=== PATIENT | female | born 1995 | race Caucasian/White ===

== ENCOUNTER → 2019-08-16 11:24 | Outpatient (CLI) | payer OTHER, MEDICAID, SELFPAY ==
[2019-08-16 12:05] LABS: Appearance Urine UA CLEAR; Bilirubin Urine UA NEGATIVE (NEGATIVE); Color Urine UA YELLOW; Glucose Urine UA NEGATIVE (Negative); Ketones Urine UA NEGATIVE (NEGATIVE); Leukocyte Esterase Urine UA NEGATIVE (NEGATIVE); Nitrite Urine UA NEGATIVE (Negative); Occult Blood Urine UA NEGATIVE (Negative); Protein Urine UA NEGATIVE (Negative); Specific Gravity Urine UA 1.015 (1.000-1.035); Urobilinogen Urine UA 0.2 E.U./dL (0.2)
[2019-08-16 12:06] LABS: pH Urine UA 6.5 (4.5-8.0)
[2019-08-16 12:21] LABS: Add Manual Diff / Slide Review NO; Basophils Absolute Auto 0 /uL (0-100); Basophils Percent Auto 0.3 % (0-2); Eosinophils Absolute Auto 0 /uL (0-450); Eosinophils Percent Auto 0.4 % (2-4); Hematocrit 38.6 % (36-46); Hemoglobin 13.3 g/dL (12.0-16.0); Lymphocytes Absolute Auto 1700 /uL (1100-4500); Lymphocytes Percent Auto 17.2 % (25-40); Mean Corpuscular HGB Conc 34.5 % (30-36); Mean Corpuscular Hemoglobin 30.2 PG (26-34); Mean Corpuscular Volume 87.3 fL (80-100); Monocytes Absolute Auto 400 /uL (0-900); Monocytes Percent Auto 4.1 % (3-14); Neutrophils Absolute Auto 7700 /uL (1500-7000); Platelet Count 273 X10^3/uL (150-400); Red Blood Cell Count 4.42 X10^6/uL (4.0-5.2); Red Cell Distribution Width 13.4 % (11.6-14.8); White Blood Cell Count 9.8 X10^3/uL (4.5-11.0)
[2019-08-16 15:14] LABS: Hepatitis B Surface Antigen NEGATIVE s/c (NEGATIVE)
[2019-08-16 15:31] LABS: HIV 1 & 2 Ab/Ag 4th Gen Combo NEGATIVE (NEGATIVE); Hep C Virus Ab w/Reflex Quant NEGATIVE s/c (NEGATIVE)
[2019-08-18 20:26] LABS: RPR Screen Nonreactive (Nonreactive)
== END ==
PROVIDERS: PCP Specialist; Visit Provider Specialist
DX: Z34.81 Encounter for supervision of other normal pregnancy, first trimester (principal)
CPT/HCPCS: 36415; 80055; 81003; 86787; 86803; 86850; 86900; 86901; 87086; 87389

== ENCOUNTER → 2019-10-08 11:06 | Outpatient (CLI) | payer OTHER, MEDICAID, SELFPAY ==
[2019-10-12 19:57] LABS: AFP, Serum 34.9 ng/mL; Brief History NTD NG; Calc Gestational Age 16.7; Cigarette Smoker N; Donated Egg N; Donor Egg Age N; Inhibin A, Dimeric 98 pg/mL; Inhibin A, MoM 0.59; Maternal Weight 151 lbs; Number of Fetuses 1; Previous Pregnancy Down Syndro N; hCG, MoM 0.32; hCG, Serum 9.4 IU/mL
== END ==
PROVIDERS: PCP Specialist; Visit Provider Specialist
DX: Z34.82 Encounter for supervision of other normal pregnancy, second trimester (principal)
CPT/HCPCS: 36415; 82105; 82677; 84702; 86336

== ENCOUNTER → 2019-11-17 13:40 | Outpatient (CLI) | payer OTHER, MEDICAID, SELFPAY ==
--- NOTE | 2019-11-17 13:41 | DI.US.S_ITS ---
PROCEDURE: OB >= 14 WEEKS FETUS INDICATIONS: 20 WEEK ANATOMY SCAN OUTSIDE/PRIOR DATING DATA: First dating scan (date and location): 08/13/19. Estimated date of delivery (MICHELE) from first dating scan: 03/19/20. TECHNIQUE: Real-time scanning was performed of the fetus, with image documentation and biometric measurements. Endovaginal scanning: No COMPARISON: [facility], OB <= 14 WEEKS FETUS, 08/13/2019, 14:38. [facility], OB >= 14 WEEKS FETUS, 10/08/2019, 11:02. FINDINGS: General: A single living intrauterine gestation is present. Presentation: Vertex. Placenta: Placental position is posterior, without previa. Amniotic fluid index: 14 cm, normal range is 5-24 cm. heart rate: 133 beats per minute. Maternal cervical canal: 4.5 cm long. Normal lower limit is 2.5 cm. biometrics: Biparietal diameter: 23 weeks 1 day Head circumference: 22 weeks 6 days Abdominal circumference: 23 weeks 2 days Femur length: 23 weeks 3 days Estimated gestational age from initial scan: 22 weeks 3 days Composite gestational age from present scan: 23 weeks 1 days Estimated weight and percentile: 583 g; 85th percentile Measurement variability for biometric dating: +/- 7 days from 14 weeks to 15 weeks 6 days gestation, +/- 10 days from 16 weeks to 21 weeks 6 days gestation, +/- 2 weeks from 22 weeks to 27 weeks 6 days gestation, +/- 3 weeks for 28 weeks gestation or later. weight reference: 4500 g or EFW >90/95% is considered macrosomia or large for gestational age. EFW <10% is small for gestational age. EFW 5% or less is considered intra-uterine growth restriction. Anatomic survey: Neuro: Ventricles are non-dilated at less than 10 mm. Cisterna magna is normal at 3-11 mm. Cerebellum is normal in size and morphology. Nuchal skin fold: Normal at less than 6 mm between 14-21 weeks gestational age. Face: Nose and lips, facial profile are normal. Spine: No evidence for spina bifida. Heart: 4-chambered heart is present, with normal ventricular outflow tracts. Diaphragm: Diaphragm is intact. Stomach: Left-sided stomach is present. Kidneys: No hydronephrosis. Normal is less than 5 mm in 2nd trimester, less than 7 mm in 3rd trimester. Cord: 3-vessel cord has orthotopic insertion. Bladder: Normal in size. Extremities: All 4 extremities identified. IMPRESSION: 1. Single living IUP redemonstrated and interval growth is normal. 2. Normal anatomic survey. Dictated by: Tarik HYATT Interpreted: Toñito Herron MD on 11/17/2019 at 16:40 Approved by: Toñito Herron M.D. on 11/17/2019 at 17:00
== END ==
PROVIDERS: PCP Specialist; Referring Provider Specialist; Visit Provider Specialist
DX: Z34.82 Encounter for supervision of other normal pregnancy, second trimester (principal); Z3A.23 23 weeks gestation of pregnancy
CPT/HCPCS: 76811

== ENCOUNTER → 2019-12-10 09:10 | Outpatient (CLI) | payer OTHER, MEDICAID, SELFPAY ==
[2019-12-10 12:41] LABS: Hematocrit 34.8 % (36-46); Hemoglobin 11.2 g/dL (12.0-16.0)
[2019-12-10 13:00] LABS: GTT (PREG) 1 Hour PP 50gm Dose 97 mg/dL (76-139)
== END ==
PROVIDERS: PCP Specialist; Referring Provider Specialist; Visit Provider Specialist
DX: Z34.82 Encounter for supervision of other normal pregnancy, second trimester (principal)
CPT/HCPCS: 36415; 82950; 85014; 85018

== ENCOUNTER 2020-02-04 09:23 | Outpatient (CLI) | payer OTHER, MEDICAID, SELFPAY ==
--- NOTE | 2020-02-04 10:27 | P.TNLD_ITS ---
Visit Information Visit Information Date of evaluation: 02/04/20 Primary OB Provider: Kiara Emery Reason for Evaluation: Yes non-stress test non-stress test reason: other (Deceleration heard on [place] in office) Vital Signs Vital Signs: Blood pressure 111/58, pulse 91, temperature 36.5? 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) current occupational exposures/hazards: No special danielle needs: No leisure activities: other (runs around with her son and at work!) Smoking Status: Former smoker Evaluation Evaluation Baseline heart rate: 120 Variability: Moderate (11-25) monitor accelerations: Present monitor decelerations: Absent Contraction Frequency (minutes): 0 Diagnosis, Plan/Disposition Final Diagnosis (1) Hypertension affecting in third trimester: Current Visit: No Status: Acute (2) 30 weeks gestation of : Current Visit: Yes Status: Acute Plan/Disposition Plan: NST reactive with prolonged accelerations rather than decelerations Blood pressure much improved OB Disposition: home
== END 2020-02-04 10:34 | disposition home or self-care (01) ==
LOC: LABOR 09:32 → OB 02-08 12:35
PROVIDERS: PCP Specialist; Referring Provider Specialist; Visit Provider Specialist
DX: O13.3 Gestational [pregnancy-induced] hypertension without significant proteinuria, third trimester (principal); Z3A.30 30 weeks gestation of pregnancy
CPT/HCPCS: 59025; G0378; G0379

== ENCOUNTER → 2020-02-23 12:12 | Outpatient (CLI) | payer OTHER, MEDICAID, SELFPAY ==
[2020-02-24 17:48] LABS: Strep Grp B PCR NEG for Grp B Strep
== END ==
PROVIDERS: PCP Specialist; Visit Provider Specialist
DX: Z34.83 Encounter for supervision of other normal pregnancy, third trimester (principal)
CPT/HCPCS: 87653

== ENCOUNTER 2020-03-24 08:56 | Outpatient (CLI) | payer OTHER, MEDICAID, SELFPAY ==
--- NOTE | 2020-03-24 09:50 | P.TNLD_ITS ---
Visit Information Visit Information Date of evaluation: 03/24/20 Primary OB Provider: Kiara Emery Reason for Evaluation: Yes non-stress test non-stress test reason: other (Postdates) Vital Signs Vital Signs: Blood pressure 127/73 pulse of 93 [facility] Medical History (Updated 03/24/20 @ 15:26 by Kiara Emery MD) Chlamydia (Acute) Peptic ulcer (Acute) Pneumonia (Acute) Post depression (Acute) Vaginal delivery (Inactive ~11/2016) Surgical History (Updated 08/10/19 @ 10:13 by Chana Haider RN) History of dilatation and curettage (Acute) Social History marital status: unmarried,living together number of children: 1 household members: significant other and children pets and animals: Yes (X 2 cats and aware) education level: high school (11 years) 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 Patient has an appointment in 3 days. Routine precautions reviewed with the patient. She is scheduled for induction in 1 week OB Disposition: home
== END 2020-03-24 09:51 | disposition home or self-care (01) ==
LOC: LABOR 09:21 → OB 11:35
PROVIDERS: PCP Specialist; Referring Provider Specialist; Visit Provider Specialist
DX: O48.0 Post-term pregnancy (principal); Z3A.40 40 weeks gestation of pregnancy
CPT/HCPCS: 59025; G0378; G0379

== ENCOUNTER 2020-03-27 10:31 | Outpatient (CLI) | payer OTHER, MEDICAID, SELFPAY | END 2020-03-27 11:29 | disposition home or self-care (01) | LOC: LABOR 10:49 → OB 03-28 10:01 | PROVIDERS: PCP Specialist; Referring Provider Specialist; Visit Provider Specialist | DX: O48.0 Post-term pregnancy (principal); Z3A.41 41 weeks gestation of pregnancy | CPT/HCPCS: 59025; G0378; G0379 ==

== ENCOUNTER 2020-03-27 20:18 | Inpatient (IN) | payer OTHER, MEDICAID, SELFPAY ==
[2020-03-27 21:25] LABS: Add Manual Diff / Slide Review NO; Basophils Absolute Auto 100 /uL (0-100); Basophils Percent Auto 0.6 % (0-2); Eosinophils Absolute Auto 100 /uL (0-450); Eosinophils Percent Auto 0.6 % (2-4); Hematocrit 32.3 % (36-46); Hemoglobin 10.7 g/dL (12.0-16.0); Lymphocytes Absolute Auto 2200 /uL (1100-4500); Lymphocytes Percent Auto 18.2 % (25-40); Mean Corpuscular HGB Conc 33.2 % (30-36); Mean Corpuscular Hemoglobin 27.8 PG (26-34); Mean Corpuscular Volume 83.7 fL (80-100); Monocytes Absolute Auto 800 /uL (0-900); Monocytes Percent Auto 6.2 % (3-14); Neutrophils Absolute Auto 9100 /uL (1500-7000); Neutrophils Percent Auto 74.4 % (50-75); Platelet Count 178 X10^3/uL (150-400); Red Blood Cell Count 3.86 X10^6/uL (4.0-5.2); Red Cell Distribution Width 15.8 % (11.6-14.8); White Blood Cell Count 12.3 X10^3/uL (4.5-11.0)
[2020-03-27 21:34] LABS: Alanine Aminotransferase 16 IU/L (<35); Albumin 3.5 g/dL (3.5-5.0); Albumin Globulin Ratio 1.2 (1.0-2.8); Alkaline Phosphatase 176 U/L (38-126); Aspartate Aminotransferase 32 IU/L (14-36); BUN Creatinine Ratio 11.8 (6-22); Bilirubin Total 0.5 mg/dL (0.2-1.3); Bilirubin Unconjugated 0.4 mg/dL (0.0-1.1); Blood Urea Nitrogen 6 mg/dL (7-17); Calcium 9.2 mg/dL (8.4-10.2); Carbon Dioxide 19 mmol/L (22-32); Chloride 107 mmol/L (98-107); Estimated Glomerular Filt Rate > 60.0 mL/min (>60); Globulin 2.9 g/dL (1.7-4.1); Glucose 99 mg/dL (70-100); HEMOLYSIS < 15 (0-50); Potassium 3.5 mmol/L (3.4-5.1); Sodium 134 mmol/L (137-145); Total Protein 6.4 g/dL (6.3-8.2)
[2020-03-27] MEDS: miSOPROStoL 25 MCG TABLET VAG (21:48)
[2020-03-27 21:51] LABS: COVID19 -Nasal RAPID Negative (Negative)
[2020-03-27 23:56] VITALS: BP 148/87
[2020-03-28] MEDS: ZOLPIDEM 5 MG TABLET PO (01:15)
[2020-03-28] MEDS: fentaNYL 100 MCG/2 ML INJ IV (05:04)
[2020-03-28] MEDS: ONDANSETRON 4 MG/2 ML INJ IV (06:47)
[2020-03-28] MEDS: LACTATED RINGERS 1,000 ML 100 ML IV ×2 (06:49→07:59)
[2020-03-28] MEDS: FENT 2MCG/ML BUPIV 0.125% EPI 200 MCG/100 ML PLAST..BAG 6 MCG EPIDURAL (07:59)
--- NOTE | 2020-03-28 08:34 | PM.AN.REGBLK ---
Regional Block Pre-procedure Procedure: Continuous Lumbar Epidural for L&D Attending OB provider: Kiara Emery PMH/ROS narrative: term labor induction, HTN well controlled on labetolol, no further complications. Hx: No personal or family history of anesthesia problems. ASA Class: II Labs: Hct 32.3 % (36-46) L 03/27/20 21:15 Hct Cancelled 03/27/20 21:15 Plt Count 178 X10^3/uL (150-400) 03/27/20 21:15 Plt Count Cancelled 03/27/20 21:15 Medications: Current Medications Generic Name Dose Route Start Last Admin Trade Name Freq PRN Reason Stop Dose Admin Calcium Carbonate 1,000 mg 03/27/20 20:32 Tums PO Q2H PRN Dyspepsia Calcium Carbonate 1,000 mg 03/27/20 21:56 Tums PO Q2HR PRN Dyspepsia Diphenhydramine HCl 25 mg 03/28/20 06:59 Benadryl IV Q10M PRN Pruritis Fentanyl 100 mcg 03/27/20 21:56 03/28/20 05:04 Sublimaze IV 100 mcg Q1H PRN Administration Pain, Severe (7-10) Lactated Ringer's 1,000 mls @ 100 mls/hr 03/27/20 22:00 03/28/20 07:59 Lactated Ringers IV 100 mls/hr CONT RIO Administration FENT 2MCG/ML BUPIV 0.125% EPI 200 mcg in 100 mls @ 6 mls/hr 03/28/20 07:00 03/28/20 07:59 Fentanyl/Bupiv/Ns 2mcg/Ml - 0.125% EPIDURAL 6 mls/hr CONT RIO Administration Labetalol HCl 100 mg 03/27/20 21:00 Trandate PO BID RIO Misoprostol 25 mcg 03/27/20 20:32 03/27/20 21:48 Cytotec VAG 25 mcg Q4HR PRN Administration Cervical Ripening Naloxone HCl 0.2 mg 03/27/20 21:56 Narcan IV Q2MIN PRN Opiate Reversal Ondansetron HCl 4 mg 03/27/20 21:56 03/28/20 06:47 Zofran IV 4 mg Q4HR PRN Administration Nausea And Vomiting Zolpidem Tartrate 5 mg 03/27/20 20:32 03/28/20 01:15 Ambien PO 5 mg BEDTIME PRN Administration Sleep Allergies: Allergies Allergy/AdvReac Type Severity Reaction Status Date / Time No Known Drug Allergies Allergy Verified 03/28/20 08:01 Procedure Insertion date: 03/28/20 Insertion time: 07:00 Prep/Local: betadine x3 Interspace: L2-3 Patient position: sitting Needle: 18 gauge Hustead (CSE: 27g Pencan through Hustead, clear CSF, 1mL 0.25% bupiv) Loss of resistance with: saline YARA at (cm): 5 Catheter placed at SKIN (cm): 10 Catheter in SPACE (cm): 5 Insertion: No Blood, No Paresthesia with insertion, No Paresthesia with injection and No Test dose reaction Initial Medications TEST DOSE time: 07:12 TEST DOSE: 1.5% lidocaine with epinephrine 1:200k (mL): 3 BOLUS DOSE time: 07:13 BOLUS DOSE (mL): 3 BOLUS DOSE med: 0.125% bupivacaine with fentanyl 10 mcg/mL (infusate) Infusion INFUSION: 0.125% bupivacaine and with fentanyl 2 mcg/mL Initial rate (mL/hr): 8 Post-procedure Anesthesia time START: 07:00 Anesthesia time END: 08:50 Post-procedure Anesthesia Assessment: Yes CV function: HR/BP stable, Yes Resp function: RR/sat/airway adequate, Yes Post-op hydration adequate, Yes Pain control adequate, Yes Nausea & vomiting absent, Yes Mental status appropriate and No Anesthesia complications
[2020-03-28] MEDS: OXYTOCIN 10 UNIT/ML VIAL 20 UNIT (09:00)
--- NOTE | 2020-03-28 09:04 | P.HPOB_ITS ---
OB HPI Date/Time Date of admission: 03/27/20 Date Patient Seen: 03/28/20 Time Patient Seen: 08:30 History of Present Condition Chief complaint: maternity : 3 Para: 1 Estimated Date of Delivery: 03/19/20 Estimated Gestational Age (weeks): 41 Narrative: Heydi Vinson is a 25 year old female admitted for induction for postdates and gestational hypertension Indications Indication for induction OB: post dates and medical complication (Gestational hypertension) History of Present care: good care, initiated at week # (8), number of visits (15) and pounds weight gain (58) Dating criteria: LMP confirmed by 1st trimester US Ultrasounds: normal mid trimester US Obstetrical complications: gestational hypertension Medical complications: none Preadmission Labs Blood type: B (+) positive -: Antibody screen: negative, GBS status: negative, HBsAG: negative, HIV: negative and RPR/VDLR: negative -: Chlamydia screen: not detected and Gonorrhea screen: not detected -: Rubella: immune and Varicella: immune HCAB: negative Quad screen: Normal 1 hr GTT: 97 Evaluation Evaluation Baseline heart rate: 130 Variability: Moderate (11-25) monitor accelerations: Present monitor decelerations: Variable (Intermittent) Contraction Frequency (minutes): 3 Uterine Contraction Intensity: Strong/Firm Category of Tracing: I Cervical dilation (cm): 9 Cervical effacement (%): 100 station: -1 Laboratory results: Laboratory Tests 03/27/20 03/27/20 03/27/20 20:51 21:15 21:15 WBC 12.3 H RBC 3.86 L Hgb 10.7 L Hct 32.3 L MCV 83.7 MCH 27.8 MCHC 33.2 RDW 15.8 H Plt Count 178 Neut % (Auto) 74.4 Lymph % (Auto) 18.2 L [place] % (Auto) 6.2 Eos % (Auto) 0.6 L Baso % (Auto) 0.6 Neut # (Auto) 9100 H Lymph # (Auto) 2200 [place] # (Auto) 800 Eos # (Auto) 100 Baso # (Auto) 100 Sodium 134 L Potassium 3.5 Chloride 107 Carbon Dioxide 19 L BUN 6 L Creatinine 0.51 L Estimated GFR > 60.0 BUN/Creatinine Ratio 11.8 Glucose 99 Calcium 9.2 Total Bilirubin 0.5 Conjugated Bilirubin 0.0 Unconjugated Bilirubin 0.4 AST 32 ALT 16 Alkaline Phosphatase 176 H Total Protein 6.4 Albumin 3.5 Globulin 2.9 Albumin/Globulin Ratio 1.2 COVID-19 PCR Negative Blood Type Antibody Screen 03/27/20 03/27/20 21:15 21:15 WBC Cancelled RBC Cancelled Hgb Cancelled Hct Cancelled MCV Cancelled MCH Cancelled MCHC Cancelled RDW Cancelled Plt Count Cancelled Neut % (Auto) Cancelled Lymph % (Auto) Cancelled [place] % (Auto) Cancelled Eos % (Auto) Cancelled Baso % (Auto) Cancelled Neut # (Auto) Cancelled Lymph # (Auto) Cancelled [place] # (Auto) Cancelled Eos # (Auto) Cancelled Baso # (Auto) Cancelled Sodium Potassium Chloride Carbon Dioxide BUN Creatinine Estimated GFR BUN/Creatinine Ratio Glucose Calcium Total Bilirubin Conjugated Bilirubin Unconjugated Bilirubin AST ALT Alkaline Phosphatase Total Protein Albumin Globulin Albumin/Globulin Ratio COVID-19 PCR Blood Type B Positive Antibody Screen Negative [facility] Medical History (Updated 03/24/20 @ 15:26 by Kiara Emery MD) Chlamydia (Acute) Peptic ulcer (Acute) Pneumonia (Acute) Post depression (Acute) Vaginal delivery (Inactive ~11/2016) Surgical History (Updated 08/10/19 @ 10:13 by Chana Haider RN) History of dilatation and curettage (Acute) Social History marital status: unmarried,living together number of children: 1 household members: significant other and children pets and animals: Yes (X 2 cats and aware) education level: high school (11 years) 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) current occupational exposures/hazards: No special danielle needs: No leisure activities: other (runs around with her son and at work!) Smoking Status: Former smoker Meds Home Medications and Allergies Home Medications Medication Instructions Recorded Confirmed Type VIT#96/FERROUS FUM/FA 1 tab PO QDAY #90 tab 06/04/16 03/28/20 Rx ( Vitamin) omeprazole 20 mg tablet,delayed 20 mg PO DAILY 11/10/19 03/28/20 History release labetalol 100 mg tablet 100 mg PO BID #60 tab 01/28/20 03/28/20 Rx Allergies Allergy/AdvReac Type Severity Reaction Status Date / Time No Known Drug Allergies Allergy Verified 03/28/20 08:01 Review of Systems Review of Systems Narrative: Patient denies headaches, scotomata, epigastric pain. When she was admitted she had no leakage of fluid or contractions. Good movement. ROS: Yes All systems reviewed with the patient and are negative except as otherwise documented Exam Vital Signs (past 8 hours): Blood pressure 129/71, pulse 79, afebrile Narrative Exam Narrative: HEENT exam within normal limits. Lungs are clear to auscultation percussion. Heart is regular rate and rhythm no S3-S4 or murmurs. Abdomen is gravid. Fetus is vertex. Extremities with trace edema and non tender. Objective Labs Result Diagrams: 03/27/20 21:15 03/27/20 21:15 Labs: Laboratory Results - last 24 hr 03/27/20 03/27/20 03/27/20 20:51 21:15 21:15 WBC 12.3 H RBC 3.86 L Hgb 10.7 L Hct 32.3 L MCV 83.7 MCH 27.8 MCHC 33.2 RDW 15.8 H Plt Count 178 Neut % (Auto) 74.4 Lymph % (Auto) 18.2 L [place] % (Auto) 6.2 Eos % (Auto) 0.6 L Baso % (Auto) 0.6 Neut # (Auto) 9100 H Lymph # (Auto) 2200 [place] # (Auto) 800 Eos # (Auto) 100 Baso # (Auto) 100 Sodium 134 L Potassium 3.5 Chloride 107 Carbon Dioxide 19 L BUN 6 L Creatinine 0.51 L Estimated GFR > 60.0 BUN/Creatinine Ratio 11.8 Glucose 99 Calcium 9.2 Total Bilirubin 0.5 Conjugated Bilirubin 0.0 Unconjugated Bilirubin 0.4 AST 32 ALT 16 Alkaline Phosphatase 176 H Total Protein 6.4 Albumin 3.5 Globulin 2.9 Albumin/Globulin Ratio 1.2 COVID-19 PCR Negative Blood Type Antibody Screen 03/27/20 03/27/20 21:15 21:15 WBC Cancelled RBC Cancelled Hgb Cancelled Hct Cancelled MCV Cancelled MCH Cancelled MCHC Cancelled RDW Cancelled Plt Count Cancelled Neut % (Auto) Cancelled Lymph % (Auto) Cancelled [place] % (Auto) Cancelled Eos % (Auto) Cancelled Baso % (Auto) Cancelled Neut # (Auto) Cancelled Lymph # (Auto) Cancelled [place] # (Auto) Cancelled Eos # (Auto) Cancelled Baso # (Auto) Cancelled Sodium Potassium Chloride Carbon Dioxide BUN Creatinine Estimated GFR BUN/Creatinine Ratio Glucose Calcium Total Bilirubin Conjugated Bilirubin Unconjugated Bilirubin AST ALT Alkaline Phosphatase Total Protein Albumin Globulin Albumin/Globulin Ratio COVID-19 PCR Blood Type B Positive Antibody Screen Negative Assessment and Plan Assessment and Plan Assessment and Plan narrative: 41 week gestation with gestational hypertension admitted for induction. Patient received Cytotec and went into active labor. Anticipate vaginal delivery.
--- NOTE | 2020-03-28 09:11 | PM.OBPRVD ---
Events: Induced HTN Labor & Delivery Delivery date: 03/28/20 Intrapartal events: None Cervical ripening method: per misoprostal protocol Delivery monitor: external FHT and external uterine Route of delivery: L&D Laceration Description: None Estimated blood loss (mL): 250 Anesthesia type: Epidural Narrative: Patient arrived on Labor and delivery for induction. She received 1 dose of Cytotec. She went into active labor and had spontaneous rupture of membranes for clear fluid at 4:15 a.m. on 03/28/2020. heart tones remained category 1 to category 2 throughout labor. She had a 13 minute 2nd stage of labor. Patient delivered spontaneously, over an intact perineum. A double nuchal cord was released. The viable male was placed on the maternal abdomen. After the cord stopped pulsating the cord was clamped, cut, and cord bloods obtained. The placenta delivered spontaneously, intact, with 3 vessels. There were no cervical, vaginal, or perineal tears. IV Pitocin was started to decrease bleeding. Estimated blood loss 250 cc. Both and mother doing well. [place] Baby 1: Infant gender: Male Presentation: vertex position: Right Occiput Anterior Placenta delivery description: Spontaneous cord vessel description: Nuchal Cord (X2) score (1 min): 9 score (5 min): 9 Plan for aftercare: Routine post vaginal delivery
[2020-03-28] MEDS: IBUPROFEN 600 MG TABLET PO ×2 (12:08→18:40)
[2020-03-28] MEDS: DERMOPLAST SPRAY 20% 60 ML 1 SPRAY TOP (12:08)
[2020-03-29 00:31] VITALS: TEMP 37.1
[2020-03-29] MEDS: IBUPROFEN 600 MG TABLET PO ×2 (00:31→08:10)
[2020-03-29 06:45] LABS: Add Manual Diff / Slide Review NO; Basophils Absolute Auto 0 /uL (0-100); Basophils Percent Auto 0.2 % (0-2); Eosinophils Absolute Auto 100 /uL (0-450); Hematocrit 30.5 % (36-46); Hemoglobin 9.9 g/dL (12.0-16.0); Lymphocytes Absolute Auto 2000 /uL (1100-4500); Lymphocytes Percent Auto 17.5 % (25-40); Mean Corpuscular HGB Conc 32.4 % (30-36); Mean Corpuscular Hemoglobin 27.6 PG (26-34); Monocytes Absolute Auto 700 /uL (0-900); Monocytes Percent Auto 6.2 % (3-14); Neutrophils Absolute Auto 8400 /uL (1500-7000); Neutrophils Percent Auto 75.1 % (50-75); Platelet Count 159 X10^3/uL (150-400); Red Blood Cell Count 3.58 X10^6/uL (4.0-5.2); White Blood Cell Count 11.2 X10^3/uL (4.5-11.0)
--- NOTE | 2020-03-29 08:28 | PM.OBDS.1 ---
Discharge Providers Provider Date of admission: 03/27/20 20:18 Discharge Date: 03/29/20 Primary care physician: Kiara Emery MD Consults: 03/29/20 09:18 Consult to Sales Warehouse Driver Routine Comment: Discharge provider: Kiara Emery MD Summary Hospital Course Date Patient Seen: 03/29/20 Time Patient Seen: 08:29 Procedures: Prostin induction, epidural catheter, spontaneous vaginal delay Hospital Course: Patient underwent Prostin induction for post dates with -induced hypertension. She received 1 dose of Cytotec and then went into spontaneous labor. She had a a epidural catheter for pain control. She had a spontaneous vaginal delivery of a 10 lb 3 oz baby. She denies headaches, scotomata, epigastric pain. She is urinating and ambulating well. Pain is under control. Peripartum Data Delivery Method: Natural Vaginal Laceration description: None Procedures: Prostin induction, epidural catheter, spontaneous vaginal delivery complications: none 1: Gender: Male Discharge Diagnosis (1) Vaginal delivery: Status: Acute (2) Hypertension affecting in third trimester: Status: Acute Status at Discharge Cognitive/behavioral status at discharge: oriented Functional status at discharge: independent ambulation Overall status at discharge: patient is progressing back to baseline Time Spent with Patient Time attestation: Total time spent providing and/or coordinating discharge services: Objective Labs Result Diagrams: 03/29/20 06:15 03/27/20 21:15 Labs: Laboratory Results - last 24 hr 03/29/20 06:15 WBC 11.2 H RBC 3.58 L Hgb 9.9 L Hct 30.5 L MCV 85.0 MCH 27.6 MCHC 32.4 RDW 16.0 H Plt Count 159 Neut % (Auto) 75.1 H Lymph % (Auto) 17.5 L [place] % (Auto) 6.2 Eos % (Auto) 1.0 L Baso % (Auto) 0.2 Neut # (Auto) 8400 H Lymph # (Auto) 2000 [place] # (Auto) 700 Eos # (Auto) 100 Baso # (Auto) 0 Exam Vital Signs (past 8 hours): - Blood pressure 124/72, pulse of 93, temperature 98.3? 03/29/20 00:31 Temperature 98.8 F Narrative Exam Narrative: Abdomen is soft, nontender. Uterus is firm, U -1, nontender. Mild lochia. Extremities without edema and nontender. Patient is Rh positive, rubella immune, and received Tdap in the 3rd trimester. Discharge Plan Discharge Plan Patient Disposition: Home Discharge orders & Medications Prescriptions: Continued VIT#96/FERROUS FUM/FA ( Vitamin) 1 tab PO QDAY Qty: 90 RF: 3 omeprazole 20 mg tablet,delayed release (DR/EC) 20 mg PO DAILY RF: 0 labetalol 100 mg tablet 100 mg PO BID Qty: 60 RF: 2 Follow up/Referrals: Kiara Emery MD [Primary Care Provider] - 1 Month Diet/Activity/Treatments Diet: Regular Activity: Nothing in vagina for 4 weeks Skin/Wound/Dressing Care Report to your healthcare provider any signs of infection, such as:: chills, fever and increased pain Discharge Data Primary Care Provider: Kiara Emery
[2020-03-29 12:45] VITALS: BP 148/87; TEMP 37.1
== END 2020-03-29 12:10 | disposition home or self-care (01) | DRG 560 ==
PROVIDERS: Admitting Provider Specialist; PCP Specialist; Referring Provider Specialist; Visit Provider Specialist
DX: O13.4 Gestational [pregnancy-induced] hypertension without significant proteinuria, complicating childbirth (principal); O48.0 Post-term pregnancy; O69.81X0 Labor and delivery complicated by cord around neck, without compression, not applicable or unspecified; Z3A.41 41 weeks gestation of pregnancy; Z37.0 Single live birth; Z11.59 Encounter for screening for other viral diseases
CPT/HCPCS: 01967; 59025; 59050; 59200; 59409; 80053; 80076; 85025; 86850; 86900; 86901; 87635; G0379; J2405; J2590; J3010

== ENCOUNTER → 2021-08-21 13:52 | Outpatient (CLI) | payer OTHER, MEDICAID, SELFPAY ==
[2021-08-22 04:36] LABS: Candida species Negative (Negative); Gardnerella vaginalis Positive (Negative); Trichomoas vaginalis Negative (Negative)
== END ==
PROVIDERS: PCP Specialist; Visit Provider Obstetrics & Gynecology
DX: N76.0 Acute vaginitis (principal)
CPT/HCPCS: 81025; 87480; 87510; 87660

== ENCOUNTER 2021-11-24 18:08 | Emergency (ER) | payer OTHER, MEDICAID, SELFPAY ==
[2021-11-24 18:14] VITALS: BP 173/94; PULSE 91; RESP 22; TEMP 36.7; O2SAT 97; BMI 25.4
[2021-11-24 18:47] LABS: Appearance Urine UA CLEAR; Bilirubin Urine UA 1+ (NEGATIVE); Color Urine UA YELLOW; Glucose Urine UA NEGATIVE (Negative); Ketones Urine UA 2+ (NEGATIVE); Leukocyte Esterase Urine UA NEGATIVE (NEGATIVE); Nitrite Urine UA NEGATIVE (Negative); Occult Blood Urine UA 1+ (Negative); Protein Urine UA 1+ (Negative); Specific Gravity Urine UA >=1.030 (1.000-1.035); Urobilinogen Urine UA 0.2 E.U./dL (0.2)
[2021-11-24 19:01] LABS: COVID19 -Nasal RAPID Negative (Negative)
[2021-11-24 19:02] LABS: pH Urine UA 5.5 (4.5-8.0)
[2021-11-24 19:18] LABS: Ictotest Urine Negative (Negative); RBC Urine 1-5/HPF (0-5/HPF); Squamous Epithelial Cell Urine 10-30 /HPF (0-5/HPF); WBC Urine 1-5/HPF (0-5/HPF)
[2021-11-24 19:19] LABS: Bacteria Urine Few (2-10); Culture Indicated Urine Cult Not Indicated; Mucus Urine 1+ (Negative)
[2021-11-24 19:37] VITALS: BP 138/82; PULSE 81; O2SAT 99
--- NOTE | 2021-11-24 20:38 | ED.NAVMDI ---
HPI - Nausea/Vomiting/Diarrhea General Chief complaint: Nausea/Vomiting/Diarrhea Stated complaint: Nausea vomiting diarrhea 30 days Time Seen by Provider: 11/24/21 20:38 Source: patient Mode of arrival: Ambulatory History of Present Illness HPI Narrative: Patient is a 26-year-old female who presents with nausea and vomiting. She has had this ongoing for the last number weeks. She says that she has lost 30 lb over last 4 weeks. She has been hospitalized at [facility] she had an EGD and a colonoscopy. It was thought that some of her nausea might be due to cannabis hyperemesis syndrome versus a colitis. At 1 point she had a UTI. She has Zofran at home she is on proton pump inhibitors twice a day as well. She says that every time she eats she throws up despite 2 different anti nausea medications. She says she sometimes is able to keep liquids down. Over last 1 week she says that she has had a brain fog and some his head discomfort. She has fallen once. She has no fever no neck pain no rash. She denies any abdominal pain. According to [facility] records she has had ultrasound and a CT within the month. Related Data Previous Rx's Medication Instructions Recorded VIT#96/FERROUS FUM/FA 1 tab PO QDAY #90 tab 06/04/16 ( Vitamin) norethindrone (contraceptive) 0.35 0.35 mg PO DAILY #84 tab 05/12/20 mg tablet ondansetron 4 mg disintegrating 4 mg PO Q6-8H PRN #20 tab 11/24/21 tablet Allergies Allergy/AdvReac Type Severity Reaction Status Date / Time metoclopramide [From Reglan] AdvReac Verified 11/24/21 18:22 Review of Systems Review of Systems Narrative: GENERAL: Denies chills, fatigue, malaise, fever, sweats, travel HEENT: Denies sinus pain, ear pain, sore throat, difficulty swallowing, neck pain RESPIRATORY: Denies dyspnea, cough, wheezing, hemoptysis, sputum. CARDIOVASCULAR: Denies chest pain, palpitations, orthopnea, edema GASTROINTESTINAL: See HPI : Denies dysuria, frequency, incontinence, hematuria, urinary retention, flank pain. MUSCULOSKELETAL: Denies weakness, joint pain, or bony pain SKIN: No rash, no erythema, no pruritus NEUROLOGIC:+ headache, see HPI PSYCHIATRIC: No concerning psychosocial issues. 12 point review of systems is negative except for those stated above and HPI Patient History Medical History Chlamydia Peptic ulcer Pneumonia Post depression Vaginal delivery (~11/2016) Vaginal delivery (~03/28/20) Surgical History History of dilatation and curettage Social History marital status: unmarried,living together number of children: 1 household members: significant other and children pets and animals: Yes (X 2 cats and aware) education level: high school (11 years) occupational status: employed ([employer] works part-time) current occupational exposures/hazards: No special danielle needs: No leisure activities: other (runs around with her son and at work!) Smoking Status: Former smoker Smoking Status: Former smoker Substance Use Type: does not use Exam Initial Vital Signs Initial Vital Signs: Vital Signs Temperature 98.1 F 11/24/21 18:14 Pulse Rate 91 H 11/24/21 18:14 Respiratory Rate 22 11/24/21 18:14 Blood Pressure 173/94 H 11/24/21 18:14 Pulse Oximetry 97 11/24/21 18:14 GENERAL: Alert well-appearing 26-year-old female in [no acute] distress. HEENT: Head atraumatic,EOMI, pupils reactive, face symmetric, [moist] mucous membranes, no meningeal signs CARDIOVASCULAR: Regular rate and rhythm without murmurs, rubs or gallops. RESPIRATORY: Breath sounds equal bilaterally, no wheezes rales or rhonchi. ABDOMEN: Soft, nontender. Normoactive bowel sounds all 4 quadrants. No guarding or rebound. EXTREMITIES: Normal range of motion, no clubbing or edema. Neurovascularly intact NEUROLOGICAL: Alert and oriented x4.Normal gait and speech. Moving all extremities SKIN: Warm, dry, no laceration, no petechiae, no rashes or lesions. Course Orders Ordered: ED Orders 11/24/21 21:12 CT head/brain wo con Stat 11/24/21 21:20 Complete Blood Count AUTO DIFF Stat Comprehensive Metabolic Panel Stat Lipase Stat Discontinued Medications Sodium Chloride (Normal Saline 0.9%) 1,000 mls @ 1,000 mls/hr IV CONT RIO Last Admin: 11/24/21 21:34 Dose: 1,000 mls/hr Documented by: RAMYA Ketorolac Tromethamine (Ketorolac 30 Mg/Ml Vial) 30 mg IV NOW ONE Stop: 11/24/21 20:53 Last Admin: 11/24/21 21:34 Dose: 30 mg Documented by: RAMYA Ondansetron HCl (Ondansetron 4 Mg/2 Ml Inj) 4 mg IV NOW ONE Stop: 11/24/21 20:53 Last Admin: 11/24/21 21:34 Dose: 4 mg Documented by: RAMYA Pantoprazole Sodium (Pantoprazole 40 Mg Vial) 40 mg IV NOW ONE Stop: 11/24/21 20:53 Last Admin: 11/24/21 21:34 Dose: 40 mg Documented by: RAMYA Vital Signs Vital signs: Vital Signs - 8 hr 11/24/21 18:14 11/24/21 19:37 Temperature 98.1 F Pulse Rate 91 H 81 Respiratory Rate 22 Blood Pressure 173/94 H 138/82 Pulse Oximetry 97 99 MDM - Nausea/Vomiting/Diarrhea Lab Data Result diagrams: 11/24/21 21:20 11/24/21 21:20 Labs: Lab Results 11/24/21 11/24/21 11/24/21 Range/Units 18:20 18:30 21:20 WBC 8.8 (4.5-11.0) X10^3/uL RBC 4.85 (4.0-5.2) X10^6/uL Hgb 13.9 (12.0-16.0) g/dL Hct 40.8 (36-46) % MCV 84.2 (80-100) fL MCH 28.7 (26-34) PG MCHC 34.1 (30-36) % RDW 14.0 (11.6-14.8) % Plt Count 274 (150-400) X10^3/uL Neut % (Auto) 68.2 (50-75) % Lymph % (Auto) 24.9 L (25-40) % Letcher % (Auto) 6.1 (3-14) % Eos % (Auto) 0.4 L (2-4) % Baso % (Auto) 0.4 (0-2) % Neut # (Auto) 6000 (6266-9034) /uL Lymph # (Auto) 2200 (6652-5542) /uL Letcher # (Auto) 500 (0-900) /uL Eos # (Auto) 0 (0-450) /uL Baso # (Auto) 0 (0-100) /uL Sodium (137-145) mmol/L Potassium (3.4-5.1) mmol/L Chloride (98-107) mmol/L Carbon Dioxide (22-32) mmol/L BUN (7-17) mg/dL Creatinine (0.52-1.04) mg/dL Estimated GFR (>60) mL/min BUN/Creatinine Ratio (6-22) Glucose (70-100) mg/dL Calcium (8.4-10.2) mg/dL Total Bilirubin (0.2-1.3) mg/dL AST (14-36) IU/L ALT (<35) IU/L Alkaline Phosphatase (38-126) U/L Total Protein (6.3-8.2) g/dL Albumin (3.5-5.0) g/dL Globulin (1.7-4.1) g/dL Albumin/Globulin Ratio (1.0-2.8) Lipase (23-300) U/L Urine Color Yellow Urine Appearance Clear Urine pH 5.5 (4.5-8.0) Ur Specific Davidson >=1.030 H (1.000-1.035) Urine Protein 1+ H (Negative) Urine Glucose (UA) Negative (Negative) g/dL Urine Ketones 2+ H (NEGATIVE) Urine Occult Blood 1+ H (Negative) Urine Nitrate Negative (Negative) Urine Bilirubin 1+ H (NEGATIVE) Ur Bilirubin Confirm Negative (Negative) Urine Urobilinogen 0.2 (0.2) E.U./dL Ur Leukocyte Esterase Negative (NEGATIVE) Urine RBC 1-5/hpf (0-5/HPF) Urine WBC 1-5/hpf (0-5/HPF) Ur Squamous Epith Cells 10-30 /hpf H (0-5/HPF) Urine Bacteria Few (2-10) H (None) Urine Mucus 1+ H (Negative) Ur Culture Indicated? Cult not indicated SARS-CoV-2 (PCR) Negative (Negative) 11/24/21 Range/Units 21:20 WBC (4.5-11.0) X10^3/uL RBC (4.0-5.2) X10^6/uL Hgb (12.0-16.0) g/dL Hct (36-46) % MCV (80-100) fL MCH (26-34) PG MCHC (30-36) % RDW (11.6-14.8) % Plt Count (150-400) X10^3/uL Neut % (Auto) (50-75) % Lymph % (Auto) (25-40) % Letcher % (Auto) (3-14) % Eos % (Auto) (2-4) % Baso % (Auto) (0-2) % Neut # (Auto) (1641-8569) /uL Lymph # (Auto) (2216-8704) /uL Letcher # (Auto) (0-900) /uL Eos # (Auto) (0-450) /uL Baso # (Auto) (0-100) /uL Sodium 138 (137-145) mmol/L Potassium 3.7 (3.4-5.1) mmol/L Chloride 106 (98-107) mmol/L Carbon Dioxide 23 (22-32) mmol/L BUN 10 (7-17) mg/dL Creatinine 0.66 (0.52-1.04) mg/dL Estimated GFR > 60.0 (>60) mL/min BUN/Creatinine Ratio 15.2 (6-22) Glucose 92 (70-100) mg/dL Calcium 9.8 (8.4-10.2) mg/dL Total Bilirubin 1.2 (0.2-1.3) mg/dL AST 73 H (14-36) IU/L ALT 22 (<35) IU/L Alkaline Phosphatase 84 (38-126) U/L Total Protein 8.4 H (6.3-8.2) g/dL Albumin 4.9 (3.5-5.0) g/dL Globulin 3.5 (1.7-4.1) g/dL Albumin/Globulin Ratio 1.4 (1.0-2.8) Lipase 163 (23-300) U/L Urine Color Urine Appearance Urine pH (4.5-8.0) Ur Specific Davidson (1.000-1.035) Urine Protein (Negative) Urine Glucose (UA) (Negative) g/dL Urine Ketones (NEGATIVE) Urine Occult Blood (Negative) Urine Nitrate (Negative) Urine Bilirubin (NEGATIVE) Ur Bilirubin Confirm (Negative) Urine Urobilinogen (0.2) E.U./dL Ur Leukocyte Esterase (NEGATIVE) Urine RBC (0-5/HPF) Urine WBC (0-5/HPF) Ur Squamous Epith Cells (0-5/HPF) Urine Bacteria (None) Urine Mucus (Negative) Ur Culture Indicated? SARS-CoV-2 (PCR) (Negative) Point of Care Testing Test Results Negative Imaging Data CT scan - head: Radiologist's Impression: PROCEDURE:? CT HEAD/BRAIN WO CON ? INDICATIONS:? headache x 1 week, falling ? TECHNIQUE:? Noncontrast 4.5 mm thick angled axial sections acquired from the foramen magnum to the vertex, with coronal and sagittal reformats.? For radiation dose reduction, the following was used:? automated exposure control, adjustment of mA and/or kV according to patient size.? ? COMPARISON:? None. ? FINDINGS:? Image quality:? Excellent.? ? CSF spaces:? Basal cisterns are patent.? No extra-axial fluid collections.? Ventricles are normal in size and shape.? ? Brain:? No midline shift.? No intracranial masses or hemorrhage.? Fernandez-white matter interface is normal.? ? Skull and face:? Calvarium and visualized facial bones are intact, without suspicious lesions.? ? Sinuses:? Visualized sinuses and mastoids are clear.? ? IMPRESSION:? No trauma found. ? ? Dictated by: Deni Chahal M.D. on 11/24/2021 at 21:39 ?? MDM Narrative Medical decision making narrative: Had chronic nausea and vomiting ongoing for number of weeks. She has had some significant weight loss. I do recommend a dietitian for reintroducing foods. There is some psychosomatic about eating and making her nauseous. She is tolerating fluids without any difficulty. Her head CT is negative. We discussed how some of her head pressure may be related to lack of food and possible dehydration. Although blood work is overall reassuring. No sign of infection. She certainly has no meningeal signs. She overall appears healthy and well. At this time I see no need for any further imaging of her abdomen she has had many and she had a GI consult. At this time I recommend continuing outpatient follow-up. Discharge Plan Departure Patient Disposition: Home Clinical Impression: Chronic vomiting Instructions: Nausea and Vomiting-Adult Activity Restrictions/Additional Instructions: The car that I do not have an answer for you. At this time I recommend trying to talk to a molecular biology professor about possible food sensitivities and how to reintroduce food here body. 1) You have been diagnosed with chronic vomiting 2) What to do: Drink frequent but small amounts of fluids. I recommend Gatorade or a Gatorade-like product, as it has small amounts of sugar and salts that improve fluid retention. 3) Take medications as directed Continue omeprazole 20-40 mg once a day Zofran 4 mg and is very is 68 hours he did for nausea vomiting, recommend taking 30 minutes prior to attempt at eating 4) Follow up with your primary care provider in 2-3 days 5) Return to ER if you should have any new or worsening symptoms such as, unable to hold down fluids despite use of anti-nausea medications and the small volume oral rehydration strategy. Prescriptions: New ondansetron 4 mg tablet,disintegrating 4 mg PO Q6-8H PRN (Reason: nausea and vomiting) Qty: 20 0RF No Action VIT#96/FERROUS FUM/FA ( Vitamin) 1 tab PO QDAY Qty: 90 3RF norethindrone (contraceptive) 0.35 mg tablet 0.35 mg PO DAILY Qty: 84 4RF Referrals: Kiara Emery MD [Primary Care Provider] -
--- NOTE | 2021-11-24 21:12 | DI.CT.S_ITS ---
PROCEDURE: CT HEAD/BRAIN WO CON INDICATIONS: headache x 1 week, falling TECHNIQUE: Noncontrast 4.5 mm thick angled axial sections acquired from the foramen magnum to the vertex, with coronal and sagittal reformats. For radiation dose reduction, the following was used: automated exposure control, adjustment of mA and/or kV according to patient size. COMPARISON: None. FINDINGS: Image quality: Excellent. CSF spaces: Basal cisterns are patent. No extra-axial fluid collections. Ventricles are normal in size and shape. Brain: No midline shift. No intracranial masses or hemorrhage. Fernandez-white matter interface is normal. Skull and face: Calvarium and visualized facial bones are intact, without suspicious lesions. Sinuses: Visualized sinuses and mastoids are clear. IMPRESSION: No trauma found. Dictated by: Deni Chahal M.D. on 11/24/2021 at 21:39 Approved by: Deni Chahal M.D. on 11/24/2021 at 21:39
[2021-11-24] MEDS: PANTOPRAZOLE 40 MG VIAL IV (21:34)
[2021-11-24] MEDS: ONDANSETRON 4 MG/2 ML INJ IV (21:34)
[2021-11-24] MEDS: SODIUM CHLORIDE 0.9% 1,000 ML 1000 ML IV (21:34)
[2021-11-24] MEDS: KETOROLAC 30 MG/ML VIAL IV (21:34)
[2021-11-24 21:35] LABS: Add Manual Diff / Slide Review NO; Basophils Absolute Auto 0 /uL (0-100); Basophils Percent Auto 0.4 % (0-2); Eosinophils Absolute Auto 0 /uL (0-450); Eosinophils Percent Auto 0.4 % (2-4); Hematocrit 40.8 % (36-46); Hemoglobin 13.9 g/dL (12.0-16.0); Lymphocytes Absolute Auto 2200 /uL (1100-4500); Lymphocytes Percent Auto 24.9 % (25-40); Mean Corpuscular HGB Conc 34.1 % (30-36); Mean Corpuscular Hemoglobin 28.7 PG (26-34); Mean Corpuscular Volume 84.2 fL (80-100); Monocytes Absolute Auto 500 /uL (0-900); Monocytes Percent Auto 6.1 % (3-14); Neutrophils Absolute Auto 6000 /uL (1500-7000); Neutrophils Percent Auto 68.2 % (50-75); Platelet Count 274 X10^3/uL (150-400); Red Blood Cell Count 4.85 X10^6/uL (4.0-5.2); White Blood Cell Count 8.8 X10^3/uL (4.5-11.0)
[2021-11-24 21:48] LABS: Alanine Aminotransferase 22 IU/L (<35); Albumin 4.9 g/dL (3.5-5.0); Albumin Globulin Ratio 1.4 (1.0-2.8); Alkaline Phosphatase 84 U/L (38-126); Aspartate Aminotransferase 73 IU/L (14-36); BUN Creatinine Ratio 15.2 (6-22); Bilirubin Total 1.2 mg/dL (0.2-1.3); Blood Urea Nitrogen 10 mg/dL (7-17); Calcium 9.8 mg/dL (8.4-10.2); Carbon Dioxide 23 mmol/L (22-32); Chloride 106 mmol/L (98-107); Estimated Glomerular Filt Rate > 60.0 mL/min (>60); Globulin 3.5 g/dL (1.7-4.1); Glucose 92 mg/dL (70-100); HEMOLYSIS < 15 (0-50); Lipase 163 U/L (23-300); Potassium 3.7 mmol/L (3.4-5.1); Sodium 138 mmol/L (137-145); Total Protein 8.4 g/dL (6.3-8.2)
--- NOTE | 2021-11-24 22:39 | PC.NURSE ---
pt c/o n/v x 4 wks has been seen at other facilities for the same, c/o mild nausea at this time
== END 2021-11-24 22:41 | disposition home or self-care (01) ==
PROVIDERS: Emergency Medicine; Emergency Provider Emergency Medicine; PCP Specialist
DX: R11.2 Nausea with vomiting, unspecified (principal); R63.4 Abnormal weight loss; R51.9 Headache, unspecified; Z68.25 Body mass index [BMI] 25.0-25.9, adult; Z20.822 Contact with and (suspected) exposure to COVID-19
CPT/HCPCS: 36415; 70450; 80053; 81001; 81025; 83690; 85025; 87635; 96374; 96375; 99284; C9803; C9113; J1885; J2405